=== PATIENT | female | born 1970 | race Caucasian/White ===

== ENCOUNTER 2019-07-07 21:05 | Emergency (ER) | payer BC, OTHER ==
[~2019-07-07] VITALS: Ht 177 cm; Wt 130.0 kg
--- NOTE | 2019-07-07 21:29 | ED EENT ---
History of Present Illness General Chief Complaint: Ear Problems Stated Complaint: EARACHE Nursing Triage Note: LEFT EAR PAIN X 2 DAYS. REPORTS URGENT GAVE HER HOME REMEDY SOLUTIONS 2 DAYS AGO WHEN SHE WENT IN FOR EAR PAIN. Source: patient History of Present Illness Date Seen by Provider: Jul 07, 2019 Time Seen by Provider: 21:09 Initial Comments 49-year-old female presenting with complaints of cough over the last several days and then had sudden onset of severe left ear pain this evening. She has been having some congestion and pressure in her ears but it became suddenly worse tonight. She has been coughing up thick green sputum for the last several days. She had been seen in urgent care and been given information to do home remedies. She has been trying symptomatic care without any significant improvement. Then tonight when her ear suddenly became much worse and she had a lot of pressure in both of her ears she came into the emergency department to be seen. She denies any fever but has had some chills. Allergies and Home Medications Allergies Coded Allergies: Penicillins (Verified Allergy, Unknown, 07/07/19) Home Medications Azithromycin 500 Mg Tablet, 500 MG PO DAILY Prescribed by: MIKE TREVIÑO on 07/07/19 1671 Patient Home Medication List Home Medication List Reviewed: Yes Review of Systems Review of Systems Constitutional: chills; No fever; malaise Eyes: No Symptoms Reported Ears: See HPI Nose: congestion; denies epistaxis, denies bloody discharge; purulent discharge Mouth: no symptoms reported Throat: pain, hoarse Respiratory: cough; No hemoptysis, No orthopnea; phlegm (thick green sputum), short of breath; No stridor, No wheezing Cardiovascular: no symptoms reported Gastrointestinal: no symptoms reported Musculoskeletal: no symptoms reported Skin: no symptoms reported Neurological: No Symptoms Reported Past [place] Hx Past Med/Social Hx: Reviewed Nursing Past Med/Soc Hx Patient Social History Alcohol Use: Denies Use Recreational Drug Use: No Smoking Status: Never a Smoker 2nd Hand Smoke Exposure: No Recent Foreign Travel: No Contact w/Someone Who Travel: No Recent Infectious Disease Expo: No Recent Hopitalizations: No Physical Abuse: No Sexual Abuse: No Mistreated: No Fear: No Seasonal Allergies Seasonal Allergies: No Past Medical History Surgeries: Yes Gallbladder, Tubal Ligation Respiratory: No Cardiac: No Neurological: No 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 oz. kg; 41.00 BMI Method: General Appearance: WD/WN, mild distress (due to left ear pain) Eyes: bilateral eye PERRL, bilateral eye EOMI Ears: right ear TM normal; left ear erythema, left ear swelling, left ear tenderness, left ear TM dull, left ear TM red, left ear TM bulging Nose: discharge, sinus tenderness Mouth/Throat: pharynx swelling (with erythema); No tonsillar exudate Neck: full range of motion, supple, lymphadenopathy (R), lymphadenopathy (L) Cardiovascular: normal peripheral pulses, regular rate, rhythm Respiratory: chest non-tender, no respiratory distress, no accessory muscle use, decreased breath sounds Neurologic/Psychiatric: alert, normal mood/affect, oriented x 3 Skin: normal color, warm/dry Progress/Results/Core Measures Results/Orders My Orders Orders - MIKE TREVIÑO MD Ceftriaxone For Im Use (Rocephin For Im (07/07/19 21:30) Dexamethasone Injection (Decadron Inject (07/07/19 21:30) Methylprednisolone Acetate Inj (Depo-Med (07/07/19 21:30) Lidocaine 1% Inj 20 Ml (Xylocaine 1% Inj (07/07/19 21:30) Medications Given in ED Current Medications Medications Dose Ordered Sig/Alanis Route Start Time Stop Time Status Last Admin Dose Admin Lidocaine HCl 2.1 ml ONCE ONCE INJ 07/07/19 21:30 07/07/19 21:31 DC 07/07/19 21:36 2.1 ML Vital Signs/I&O 07/07/19 21:17 Temp 35.8 Pulse 94 Resp 18 B/P (MAP) 136/102 (113) Pulse Ox 98 Blood Pressure Mean: 113 Progress Progress Note : Progress Note With her ear on the left side being dull and red some petechial hemorrhage in the TM will cover her with an antibiotic. Will also give her a steroid for the cough and inflammation. Since the pharmacies are closed on will give a Rocephin shot tonight and then started her on Zithromax on morning. She could get a nasal steroid spray that she could use [id number] to help with the pressure and drainage in her ears and sinuses as well Departure Impression Primary Impression: Left otitis media with effusion Additional Impression: Upper respiratory infection with cough and congestion Disposition: 01 HOME, SELF-CARE Condition: Stable Departure-Patient Inst. Decision time for Depature: 21:39 Referrals: ALYSA PALOMINO MD (PCP) Primary Care Physician NO,LOCAL PHYSICIAN (Family) Primary Care Physician [facility] Patient Instructions: Ear Infections (Otitis Media) (DC), Bacterial Upper Respiratory Infection, Adult (DC) Add. Discharge Instructions: Push fluids and rest. Make sure the take a full course of antibiotics. [id number] you could try using Mucinex to thin out the congestion and cough. You may also try using Flonase or a nasal steroid spray to help with the congestion and pressure in your ears All discharge instructions reviewed with patient and/or family. Voiced understanding. Scripts Azithromycin (Azithromycin) 500 Mg Tablet 500 MG PO DAILY for 5 Days, #5 TAB 0 Refills Prov: MIKE TREVIÑO MD 07/07/19 MIKE TREVIÑO MD Jul 07, 2019 21:29
[2019-07-07] MEDS ORDERED: methylPREDNISolone 80 MG/ML (DEPO MEDROL) VIAL IM STA (21:30)
[2019-07-07] MEDS ORDERED: LIDOCAINE 1% INJ 20 ML 20 ML VIAL INJ ONE (21:30)
[2019-07-07] MEDS ORDERED: cefTRIAXone 1,000 MG/2.86 ml vial (IM ONLY) IM STA (21:30)
[2019-07-07] MEDS ORDERED: DEXAMETHASONE 10 MG/ML (DECADRON) 1 ML VIAL IM STA (21:30)
[2019-07-07] MEDS ORDERED: AZIT500T5 PO (21:41)
[2019-07-07 21:43] VITALS: BP 136/102
== END 2019-07-07 21:44 | disposition home or self-care (01) ==
LOC: EDUNIT# 21:05 → ER FS 21:06
DX: H65.92 Unspecified nonsuppurative otitis media, left ear (principal); J06.9 Acute upper respiratory infection, unspecified; E03.9 Hypothyroidism, unspecified; Z88.0 Allergy status to penicillin; Z98.51 Tubal ligation status
CPT/HCPCS: 96372; 99284